=== PATIENT | female | born 1980 | race Caucasian/White ===

== ENCOUNTER 2021-02-25 11:30 | Emergency (ER) | payer SELFPAY ==
[2021-02-25 11:31] VITALS: BP 161/89; PULSE 75; RESP 16; TEMP 36; O2SAT 98; BMI 42.0
--- NOTE | 2021-02-25 12:04 | EDS_ITS ---
HPI History of Present Illness Chief Complaint: Back Narrative Narrative: 40-year-old female presenting with back pain. She states that she bent over at work and this began hurting her. She describes it as a right lower paraspinal musculature. She is able to ambulate. No loss of bladder or bowel control. No direct trauma. No paresthesias. [facility] Medical History Anxiety Depression Home Medications sertraline [Zoloft] 100 mg PO DAILY 02/25/21 [History Last Taken Unknown] tizanidine [Zanaflex] 4 mg PO Q8H PRN #14 cap 02/25/21 [Rx Last Taken Unknown] Allergy/AdvReac Type Severity Reaction Status Date / Time No Known Allergies Allergy Verified 02/25/21 11:33 Social History Smoking Status: Current every day smoker tobacco type: cigarettes ROS ROS ED Constitutional Constitutional ED: Denies chills, fever(s) or subjective Eyes Eyes: Denies blurry vision or change in vision ENT ENT ED: Denies rhinorrhea or sore throat Cardiovascular Cardiovascular: Denies chest pain, palpitations or racing heartbeat Respiratory/Chest Respiratory/Chest: Denies dyspnea, dyspnea on exertion or sputum Gastrointestinal Gastrointestinal: Denies abdominal pain, nausea or vomiting Genitourinary Genitourinary ED: Denies dysuria, hematuria or urinary frequency Musculoskeletal Musculoskeletal: Reports back pain; Denies arthralgias or myalgias Integumentary Denies abscess or rash Neurologic Neurologic: Denies headache(s) or paresthesias Psychiatric Psychiatric: Denies anxiety or depression EXAM Physical Exam Const Vital Signs: 02/25/21 11:31 Temperature 96.8 F L Temperature Source Temporal Pulse Rate 75 Respiratory Rate 16 Blood Pressure 161/89 H Blood Pressure Mean 113 Pulse Ox 98 Oxygen Delivery Method Room Air Positive well nourished General Appearance ED: NAD HEENT Reports moist mucous membranes Negative for trauma Eyes PERRL and EOMs intact bilaterally Resp normal respiratory effort Back/Spine Back/Spine Narrative: Tenderness to palpation right lumbar paraspinal musculature. No midline spinal deformities or step-offs. No rash or ecchymosis. Patient able to stand and walk under her own strength. She is also able to bend at the waist to some degree however this worsens the back pain. Extremity normal to inspection General Extremety ED: Negative for tenderness Psych mental status grossly normal Skin no rashes or lesions noted and no wounds MDM MDM MDM Narrative Medical decision making narrative: Patient presenting with nontraumatic back pain. 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 She states she does not need a work note. Patient counseled on alternating ice and heat as well as Tylenol and ibuprofen for pain. She is to take the Zanaflex as needed. Impression: 1. Lumbar strain Discharge Plan Triage Chief Complaint: Back ED Provider: Eyal Machuca Dx/Rx/DC Orders Instructions: ED Back Spasm, No Trauma Prescriptions: New tizanidine [Zanaflex] 4 mg capsule 4 mg PO Q8H PRN (Reason: muscle spasticity) Qty: 14 RF: 0 No Action sertraline [Zoloft] 100 mg Tablet 100 mg PO DAILY RF: 0 Referrals: [facility] Doctor,Out of [NON-STAFF] - Disposition Disposition: Home, Self Care Discharge Date/Time: 02/25/21 12:16
== END 2021-02-25 12:16 | disposition home or self-care (01) ==
LOC: ED 12:14
PROVIDERS: Emergency Provider Student in an Organized Health Care Education/Training Program
DX: S39.012A Strain of muscle, fascia and tendon of lower back, initial encounter (principal); X50.1XXA Overexertion from prolonged static or awkward postures, initial encounter; Y93.9 Activity, unspecified; Y92.9 Unspecified place or not applicable; F32.9 Major depressive disorder, single episode, unspecified; F41.9 Anxiety disorder, unspecified; Z79.899 Other long term (current) drug therapy; F17.210 Nicotine dependence, cigarettes, uncomplicated
CPT/HCPCS: 99282

== ENCOUNTER 2024-11-24 12:44 | Outpatient (RCR) | payer OTHER, SELFPAY ==
--- NOTE | 2024-11-24 14:59 | HP.PTEVAL_ITS ---
Patient's Visit Information Visit Information Visit Information: YVROSE SOTELO is a 44 year old F referred to Physical Therapy by Dr. Michael Perera DPM with a diagnosis of B achilles tendonitis. 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 Pt notes she stands on her feet for work up to 12 hours per day, and notes this increases her pain. Pt notes her pain has progressively worsened over this time span. Pt reports she has had x-rays on her heels which showed no significant results. Pt reports her feet will become numb if she sits for a prolonged period of time. Pt denies any prior Hx of foot pain prior to this episode. Pt reports prolonged standing and ambulating is what causes her the most pain. Pt reports taking anti-inflammatories and massaging her ankles helps to decrease her pain. Pt notes resting also helps to decrease her pain. pt reports her B heel pain is 4/10 while sitting here at rest, and increases to 10/10 at worst. Pain B achilles: Pain Intensity (Out of 10): 4 Pain Intensity Range: 10 Objective Objective: Neuro: B LE sensation is WNL to light touch Palpation: Pt has severe pain with light palpation to the Achilles tendon and plantarfascitis ROM: R ankle DF= 0, PF= 60 degrees; L ankle DF= 1, PF= 60 degrees MMT: R ankle DF= 23, PF= 29 #F; L ankle DF= 23, PF= 33 #F Gait: Pt ambulates with lack of heelstrike secondary to lack of dorsiflexion Balance/Special Test Scores Lower Extremity Functional Score: 56 Goals Goal 1:: Decrease B achilles pain x 50% to aid with work Goal Time Frame: 2-4 Weeks Goal 2:: Increase B ankle DF ROM x 10 degrees to aid with decreasing pain Goal Time Frame: 2-4 Weeks Goal 3:: Increase B ankle PF MMT x 10 #F to aid with ambulation Goal Time Frame: 2-4 Weeks Goal 4:: I with HEP Goal Time Frame: 2-4 Weeks Rehabilitation Potential Physical Therapy Diagnosis: Pt has B achilles pain, weakness, and limited DF ROM secondary to achilles tendonitis Rehabilitation Potential: Good Anticipated Interventions Patient/Client Instruction: Educate patient on: Condition and Plan of Care For the Purpose of:: To improve self management Therapeutic Exercise to Include: Strength training, Endurance training and Flexibilty training For the Purpose of:: To decrease pain, To increase ROM and To improve muscle performance and motor function Text: Thank you for the opportunity to evaluate your patient. For Medicare and Medicare HMO plans, please review the plan of care and approve it. It will need to be FAXED BACK to us at [phone] for Medicare purposes. For Medicare only, by signing this I certify the plan of care. Please let me know if there are questions or concerns regarding this plan of care. Physician Signature: Date:
--- NOTE | 2025-02-27 14:57 | HP.PT.NRP ---
Patient Information Patient Information: YVROSE SOTELO was seen in my office for initial evaluation on 11/24/24. The following Plan of Care was established for this patient: POC Established Initial Frequency: 2x /Week Initial Duration: 3 Weeks Anticipated Interventions Patient/Client Instruction: Educate patient on: Condition and Plan of Care For the Purpose of:: To improve self management Therapeutic Exercise to Include: Strength training, Endurance training and Flexibilty training For the Purpose of:: To decrease pain, To increase ROM and To improve muscle performance and motor function Last Seen Last Seen: This patient was last seen in our office . Pertinent comments regarding their Physical therapy will appear below: Pt has not returned for greater than 30 days and is discontinued at this time. At this point I will be discontinuing this patient from physical therapy. I would be happy to see this patient again in the future if found appropriate by the physician. Thank you! Jimmy Frankel, PT, ATC Balance/Gait/Functional tests Balance/Special Test Scores Lower Extremity Functional Score: 56
== END 2024-11-24 19:00 | disposition home or self-care (01) ==
LOC: PT 12:44
PROVIDERS: Referring Provider Podiatrist; Visit Provider Podiatrist
DX: M76.61 Achilles tendinitis, right leg (principal); M76.62 Achilles tendinitis, left leg
CPT/HCPCS: 97161